=== PATIENT | male | born 1975 | race Caucasian/White ===

== ENCOUNTER 2021-03-31 12:00 | Emergency (ER) | payer OTHER ==
[2021-03-31] MEDS ORDERED: MEDROL 4MG DOSEP4 MG PO (13:43)
[2021-04-03 06:10] LABS: RPR Reactive (Non Reactive); RPR, QUANT 1:16 (NonRea<1:1); T PALLIDUM ANTIBODIES Reactive (Non Reactive)
== END 2021-03-31 14:15 | disposition home or self-care (01) ==
LOC: FER 12:00
PROVIDERS: Nurse Practitioner Family
DX: T78.40XA Allergy, unspecified, initial encounter (principal); I10 Essential (primary) hypertension; Z88.6 Allergy status to analgesic agent
CPT/HCPCS: 86593; 86780; 99283; J0561